=== PATIENT | male | born 1990 | race Caucasian/White ===

== ENCOUNTER 2018-05-24 12:51 | Emergency (ER) | payer OTHER, SELFPAY ==
[2018-05-24 13:03] VITALS: BP 115/68; PULSE 67; RESP 20; TEMP 36.8; O2SAT 97
[2018-05-24 13:34] LABS: Influenza A and B by PCR Rapid Negative (Negative)
--- NOTE | 2018-05-24 14:16 | ED.URI ---
HPI - URI/Sore Throat <Lashay Everett PA-C - Last Filed: 05/24/18 20:38> General Chief Complaint: Upper Respiratory Symptoms Stated Complaint: Sick x5 days Time Seen by Provider: 05/24/18 12:57 Source: patient Mode of arrival: ambulatory Limitations: no limitations History of Present Illness HPI Narrative: This 28-year-old comes in due to worsening upper respiratory symptoms. He states that he awoke on Sunday with nasal and sinus congestion and generalized fatigue which got worse. 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 He states that he had a lot of sweats on Sunday night and felt chilled (no temps taken at home). Thought he was a little better yesterday morning, but just doing his normal job yesterday he felt exhausted, and somewhat short of breath. He states he was ?panting? at times. He denies wheeze. He states that he continues to have a lot of nasal and sinus congestion along with productive cough and green sputum. He states occasionally he gets the short of breath or air hunger sensation, mostly describes as poor exercise tolerance. He denies wheeze. He denies recent travel or known exposures. He quit smoking a little over a month ago. Of note he is on HIV medication but this is for prophylaxis only, no history of infection. Related Data Home Medications Medication Instructions Recorded Confirmed emtricitabine-tenofovir (TDF) 1 tab PO DAILY 05/24/18 05/24/18 [Truvada] Allergies Allergy/AdvReac Type Severity Reaction Status Date / Time No Known Drug Allergies Allergy Verified 05/24/18 15:29 Review of Systems <Lashay Everett PA-C - Last Filed: 05/24/18 20:38> Review of Systems ROS Unobtainable: All systems reviewed & are unremarkable except as noted in HPI and below Exam <Lashay Everett PA-C - Last Filed: 05/24/18 20:38> Narrative Exam Narrative: GENERAL APPEARANCE: Patient sitting comfortably, in no distress. HEAD: No sinus TTP. EYES: PERRL, EOMI. EARS: Normal auditory canals, TMS intact with normal light reflexes. NOSE: Congestion, edematous mucosa ORAL CAVITY: Normal oropharynx. THROAT: Erythematous without exudate, PND noted NECK/THYROID: Neck supple, full range of motion, few small anterior cervical nodes, no posterior nodes LUNGS: Clear to auscultation bilaterally, occasional cough on exam HEART: RRR without murmur, nl S1, S2, no S3 or S4. Initial Vital Signs Initial Vital Signs: Vital Signs Temperature 98.2 F 05/24/18 13:03 Pulse Rate 67 05/24/18 13:03 Respiratory Rate 20 05/24/18 13:03 Blood Pressure 115/68 05/24/18 13:03 Pulse Oximetry 97 05/24/18 13:03 <Tonya Cárdenas DO - Last Filed: 05/25/18 08:55> Initial Vital Signs Initial Vital Signs: Vital Signs Temperature 98.2 F 05/24/18 13:03 Pulse Rate 67 05/24/18 13:03 Respiratory Rate 20 05/24/18 13:03 Blood Pressure 115/68 05/24/18 13:03 Pulse Oximetry 97 05/24/18 13:03 Course <Lashay Everett PA-C - Last Filed: 05/24/18 20:38> Additional Information: Patient works in a crowded location. Advised to remain off work until he is feeling significantly better and cough improved. Given work note and he will follow up with his flight surgeon if not feeling better in the next few days, agrees to return if acutely worsening symptoms Orders Ordered: Discontinued Medications Albuterol (Ventolin) 2.5 mg INH NOW ONE Stop: 05/24/18 14:26 Last Admin: 05/24/18 14:44 Dose: 2.5 mg Albuterol (Ventolin Hfa Prepack) 1 box MISC SEEINSTR ONE Stop: 05/24/18 15:14 Last Admin: 05/24/18 15:15 Dose: 1 box Ibuprofen (Advil) 800 mg PO NOW ONE Stop: 05/24/18 14:26 Last Admin: 05/24/18 14:39 Dose: 800 mg Vital Signs - 8 hr 05/24/18 13:03 05/24/18 14:33 05/24/18 14:47 Temperature 98.2 F Pulse Rate 67 55 L 44 L Respiratory Rate 20 21 16 Blood Pressure 115/68 Blood Pressure [Left Arm] 109/59 L Pulse Oximetry 97 98 100 05/24/18 15:15 05/24/18 15:48 Temperature Pulse Rate 46 L 73 Respiratory Rate 14 21 Blood Pressure Blood Pressure [Left Arm] 107/52 L Pulse Oximetry 100 95 <Tonya Cárdenas DO - Last Filed: 05/25/18 08:55> Orders Ordered: Discontinued Medications Albuterol (Ventolin) 2.5 mg INH NOW ONE Stop: 05/24/18 14:26 Last Admin: 05/24/18 14:44 Dose: 2.5 mg Albuterol (Ventolin Hfa Prepack) 1 box MISC SEEINSTR ONE Stop: 05/24/18 15:14 Last Admin: 05/24/18 15:15 Dose: 1 box Ibuprofen (Advil) 800 mg PO NOW ONE Stop: 05/24/18 14:26 Last Admin: 05/24/18 14:39 Dose: 800 mg Vital Signs - 8 hr 05/24/18 13:03 05/24/18 14:33 05/24/18 14:47 Temperature 98.2 F Pulse Rate 67 55 L 44 L Respiratory Rate 20 21 16 Blood Pressure 115/68 Blood Pressure [Left Arm] 109/59 L Pulse Oximetry 97 98 100 05/24/18 15:15 05/24/18 15:48 Temperature Pulse Rate 46 L 73 Respiratory Rate 14 21 Blood Pressure Blood Pressure [Left Arm] 107/52 L Pulse Oximetry 100 95 MDM - URI/Sore Throat <Lashay Everett PA-C - Last Filed: 05/24/18 20:38> Lab Data Lab Results 05/24/18 Range/Units 07:45 Influenza A & B (PCR) Negative (Negative) Imaging Data Chest x-ray: Radiologist's impression: View Report History [address] [address] XRay Report Signed Patient: Fady Rae MR#: [id number] : 1990 Acct:[id number] Age/Sex: 28 / M Date of Service: 05/24/18 Loc: ED Accession Number: [id number] Procedure: XR chest 2V Ordering Provider: Lashay Everett P.A-C PROCEDURE: XR CHEST 2V INDICATIONS: cough, fatigue, air hunger TECHNIQUE: 2 views of the chest were acquired. COMPARISON: None. FINDINGS: Surgical changes and devices: None. Lungs and pleura: No pleural effusions or pneumothorax. Lungs are clear. Mediastinum: Mediastinal contours are normal. Heart size is normal. Bones and chest wall: No suspicious bony abnormalities. Soft tissues appear unremarkable. IMPRESSION: Negative chest. No acute cardiopulmonary process is evident. Dictated by: Olaf Pickens M.D. on 05/24/2018 at 13:45 Approved by: Olaf Pickens M.D. on 05/24/2018 at 13:45 <Tonya Cárdenas DO - Last Filed: 05/25/18 08:55> Lab Data Lab Results 05/24/18 Range/Units 07:45 Influenza A & B (PCR) Negative (Negative) Discharge Plan Departure Patient Disposition: Home Clinical Impression: Sinusitis, Mild reactive airways disease Discharge Date/Time: 05/24/18 16:29 Interventions: ED Discharge Assessment Last Done: 05/24/18 16:29 Instructions: DI for Sinusitis, DI for Reactive Airway Disease-Adult Activity Restrictions/Additional Instructions: I think that you have a sinus infection/head cold that is causing drainage into your chest and making you cough and your chest tight at times. These infections are due to virus the vast majority of the time and usually get better on their own. Since the breathing treatment we gave you helped this, we have given you and inhaler to use as you need (you have inflammation in your airways due to the infection, and this could be exacerbated due to your smoking history). I do not expect you to need the inhaler on any regular basis. Take 2 puffs as needed for tight chest or cough. Continue ibuprofen as needed to help with aches. I suggest getting some Zyrtec (cetirizine) 10 mg along with pseudoephedrine from the pharmacist. These will help with drainage and nasal and sinus pressure and congestion. You can also add Mucinex (guaifenesin) to help thin the mucus in your chest. All of these are available [id number]. Please remain off of work until your cough is better so that you do not infect your coworkers. Please return as we talked about if you have any acutely worsening symptoms Prescriptions: No Action emtricitabine-tenofovir (TDF) [Truvada] 200-300 mg tablet 1 tab PO DAILY RF: 0 Referrals: [facility] [Provider Group] Stand Alone Forms: Work Release Note <Tonya Cárdenas DO - Last Filed: 05/25/18 08:55> Cosign ED Attending Cosignature Attestation: I was immediately available in the department for consultation. Documentation has been reviewed. I agree with assessment and plan.
--- NOTE | 2018-05-24 14:26 | DI.RAD.S_ITS ---
PROCEDURE: XR CHEST 2V INDICATIONS: cough, fatigue, air hunger TECHNIQUE: 2 views of the chest were acquired. COMPARISON: None. FINDINGS: Surgical changes and devices: None. Lungs and pleura: No pleural effusions or pneumothorax. Lungs are clear. Mediastinum: Mediastinal contours are normal. Heart size is normal. Bones and chest wall: No suspicious bony abnormalities. Soft tissues appear unremarkable. IMPRESSION: Negative chest. No acute cardiopulmonary process is evident. Dictated by: Oalf Pickens M.D. on 05/24/2018 at 13:45 Approved by: Olaf Pickens M.D. on 05/24/2018 at 13:45
[2018-05-24 14:33] VITALS: BP 109/59; PULSE 55; RESP 21; O2SAT 98
[2018-05-24] MEDS: IBUPROFEN 400 MG TABLET 800 MG PO (14:39)
[2018-05-24] MEDS: ALBUTEROL 2.5 MG/3 ML NEB (ADULT) INH (14:44)
[2018-05-24 14:47] VITALS: PULSE 44; RESP 16; O2SAT 100
[2018-05-24 15:15] VITALS: PULSE 46; RESP 14; O2SAT 100
[2018-05-24] MEDS: ALBUTEROL HFA PREPACK 1 BOX MISC (15:15)
[2018-05-24 15:48] VITALS: BP 107/52; PULSE 73; RESP 21; O2SAT 95
== END 2018-05-24 16:29 | disposition home or self-care (01) ==
PROVIDERS: Emergency Medicine; Emergency Provider Internal Medicine
DX: J01.90 Acute sinusitis, unspecified (principal); J45.909 Unspecified asthma, uncomplicated
CPT/HCPCS: 71046; 87400; 94640; 99282; 99284; J7613

== ENCOUNTER 2019-11-18 20:21 | Emergency (ER) | payer OTHER, SELFPAY ==
[2019-11-18 20:33] VITALS: BP 125/75; PULSE 55; RESP 18; TEMP 36.8; O2SAT 97
--- NOTE | 2019-11-18 21:01 | ED.WOUNDLAC ---
HPI - Wound/Laceration General Chief Complaint: Wound/Laceration Stated Complaint: SARA LINE ON LACERATION OF PENIS Time Seen by Provider: 11/18/19 21:01 Source: patient Mode of arrival: Ambulatory Limitations: no limitations History of Present Illness HPI narrative: The patient was trimming here from his genital area prior to arrival. He lacerated the base of the ventral penis with the sara. He has a small v-shaped laceration, there is no active bleeding. The laceration is shallow. The urethra is not impacted. Related Data Home Medications Medication Instructions Recorded Confirmed emtricitabine-tenofovir (TDF) 1 tab PO DAILY 05/24/18 05/24/18 [Truvada] Allergies Allergy/AdvReac Type Severity Reaction Status Date / Time No Known Drug Allergies Allergy Verified 05/24/18 15:29 Review of Systems Constitutional Constitutional: Denies chills, Denies fever(s), Denies lethargy and Denies weakness Genitourinary Genitourinary: Reports as per HPI Genitourinary: Reports as per HPI Integumentary/Breasts Skin/Breast: Denies erythema, Denies rash and Reports wounds (On the ventral penis) Neurologic Neurologic: Denies weakness Patient History Surgical History History of appendectomy (Resolved) History of tonsillectomy (Resolved) Family History Other Family history non-contributory Social History Smoking Status: Former smoker Smoking Status: Former smoker alcohol intake frequency: 0-2 drinks per day Substance Use Type: does not use Exam Initial Vital Signs Initial Vital Signs: Vital Signs Temperature 98.2 F 11/18/19 20:33 Pulse Rate 55 L 11/18/19 20:33 Respiratory Rate 18 11/18/19 20:33 Blood Pressure 125/75 11/18/19 20:33 Pulse Oximetry 97 11/18/19 20:33 Const General: cooperative and well developed Nutritional Appearance: well nourished Other: Shallow v-shaped laceration on the ventral penis. The length is 1 cm. There is no foreign body or contamination. Procedures Laceration Repair Laceration 1: Site: penis (Proximal, ventral) Size (cm): 1 Description: flap Pre-repair: wound explored and irrigated extensively Skin layer closed with: dermabond Course Vital Signs Vital signs: Vital Signs - 8 hr 11/18/19 20:33 Temperature 98.2 F Pulse Rate 55 L Respiratory Rate 18 Blood Pressure 125/75 Pulse Oximetry 97 Discharge Plan Departure Patient Disposition: Home Clinical Impression: Laceration of penis Qualifiers: Encounter type: initial encounter Qualified Code(s): S31.21XA - Laceration without foreign body of penis, initial encounter Instructions: DI for Laceration Repair With Dermabond Activity Restrictions/Additional Instructions: You may wash the site starting tomorrow. Avoid soaking, or excessive moisture. The glue should peel off in 5-7 days. Return to the ER as needed. Prescriptions: No Action emtricitabine-tenofovir (TDF) [Truvada] 200-300 mg tablet 1 tab PO DAILY RF: 0
--- NOTE | 2019-11-18 21:08 | PC.NURSE ---
patient came into the ED with a complaint of laceration of base penile shaft. He was manscaping and clipped his penis skin. The wound was clensed with betadyne and nacl and was glued with dermabond.
== END 2019-11-18 21:15 | disposition home or self-care (01) ==
PROVIDERS: Emergency Provider Emergency Medicine
DX: S31.21XA Laceration without foreign body of penis, initial encounter (principal)
CPT/HCPCS: 99281

== ENCOUNTER 2020-02-14 23:00 | Emergency (ER) | payer OTHER, SELFPAY ==
[2020-02-14 23:06] VITALS: BP 131/77; PULSE 68; RESP 22; TEMP 37.2; O2SAT 98; BMI 28.7
--- NOTE | 2020-02-14 23:07 | DI.RAD.S_ITS ---
PROCEDURE: XR CHEST 1V INDICATIONS: SOB, trauma TECHNIQUE: One view of the chest was acquired. COMPARISON: [facility], CR, XR CHEST 2V, 05/24/2018, 14:32. FINDINGS: Surgical changes and devices: None. Lungs and pleura: Mildly decreased lung volumes. Lungs are clear. No pleural effusions or pneumothorax. Mediastinum: Mediastinal contours appear normal. Heart size is normal. Bones and chest wall: No suspicious bony lesions. Overlying soft tissues appear unremarkable. IMPRESSION: Mildly decreased lung volumes. Dictated by: Dean Brady M.D. on 02/15/2020 at 7:23 Approved by: Dean Brady M.D. on 02/15/2020 at 7:25
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
--- NOTE | 2020-02-14 23:15 | DI.CT.S_ITS ---
PROCEDURE: CT CERVICAL SPINE WO CON INDICATIONS: trauma TECHNIQUE: Noncontrast 3 mm thick sections acquired from the skull base to the T4 level. Sagittal and coronal reformats were then constructed. For radiation dose reduction, the following was used: automated exposure control, adjustment of mA and/or kV according to patient size. COMPARISON: None. FINDINGS: Image quality: Excellent. Bones: No fractures or dislocations. Visualized superior ribs are intact. Soft tissues: Prevertebral soft tissues are normal in thickness. No paravertebral hematomas. No apical pneumothoraces. IMPRESSION: No acute cervical fracture or traumatic malalignment. Dictated by: Dean Brady M.D. on 02/15/2020 at 7:29 Approved by: Dean Brady M.D. on 02/15/2020 at 7:32
[2020-02-14] MEDS: ONDANSETRON 4 MG/2 ML INJ IV (23:24)
[2020-02-14] MEDS: HYDROMORPHONE 0.5 MG INJ IV (23:24)
[2020-02-14 23:27] LABS: Add Manual Diff / Slide Review NO; Basophils Absolute Auto 0 /uL (0-100); Basophils Percent Auto 0.6 % (0-2); Eosinophils Absolute Auto 100 /uL (0-450); Eosinophils Percent Auto 0.8 % (2-4); Hematocrit 44.5 % (41-53); Hemoglobin 15.4 g/dL (13.5-17.5); Lymphocytes Absolute Auto 2200 /uL (1100-4500); Lymphocytes Percent Auto 32.2 % (25-40); Mean Corpuscular HGB Conc 34.6 % (30-36); Mean Corpuscular Hemoglobin 31.7 PG (26-34); Mean Corpuscular Volume 91.5 fL (80-100); Monocytes Absolute Auto 500 /uL (0-900); Monocytes Percent Auto 7.7 % (3-14); Neutrophils Absolute Auto 4000 /uL (1500-7000); Neutrophils Percent Auto 58.7 % (50-75); Platelet Count 209 X10^3/uL (150-400); Red Blood Cell Count 4.87 X10^6/uL (4.5-5.9); Red Cell Distribution Width 13.4 % (11.6-14.8); White Blood Cell Count 6.8 X10^3/uL (4.5-11.0)
[2020-02-14 23:36] LABS: Alanine Aminotransferase 36 IU/L (<50); Albumin 4.4 g/dL (3.5-5.0); Albumin Globulin Ratio 1.3 (1.0-2.8); Alkaline Phosphatase 74 U/L (38-126); Aspartate Aminotransferase 48 IU/L (17-59); Bilirubin Total 0.4 mg/dL (0.2-1.3); Blood Urea Nitrogen 24 mg/dL (9-20); Calcium 9.4 mg/dL (8.4-10.2); Carbon Dioxide 28 mmol/L (22-32); Chloride 105 mmol/L (98-107); Creatine Kinase 855 U/L (55-170); Estimated Glomerular Filt Rate > 60.0 mL/min (>60); Globulin 3.4 g/dL (1.7-4.1); Glucose 110 mg/dL (70-100); Potassium 4.1 mmol/L (3.4-5.1); Sodium 140 mmol/L (137-145); Total Protein 7.8 g/dL (6.3-8.2)
[2020-02-14 23:48] LABS: Troponin I < 0.012 ng/mL (0.01-0.034)
[2020-02-14 23:49] VITALS: BP 134/83; PULSE 57; O2SAT 97
[2020-02-14 23:51] LABS: CKMB % Relative Index 0.3 % (1.5-5.0); Creatine Kinase MB 2.31 ng/mL (<2.37); HEMOLYSIS 39 (0-50)
[2020-02-15] VITALS: BP 137/83; PULSE 60; O2SAT 94
[2020-02-15] MEDS: KETOROLAC 60 MG/2 ML VIAL 15 MG IV (00:29)
[2020-02-15] MEDS: HYDROCODONE/ACET 5/325 PREPACK 1 BOTTLE MISC (00:29)
[2020-02-15] MEDS: ONDANSETRON 4 MG ODT PREPACK 1 BOTTLE MISC (00:29)
[2020-02-15 00:30] VITALS: BP 125/71; PULSE 62; O2SAT 96
[2020-02-15] MEDS: HYDROMORPHONE 0.5 MG INJ IV (00:37)
== END 2020-02-15 00:43 | disposition home or self-care (01) ==
PROVIDERS: Emergency Provider Emergency Medicine
DX: R09.1 Pleurisy (principal); S40.011A Contusion of right shoulder, initial encounter; R06.02 Shortness of breath; R07.89 Other chest pain; S09.90XA Unspecified injury of head, initial encounter; R07.81 Pleurodynia; V89.2XXA Person injured in unspecified motor-vehicle accident, traffic, initial encounter
CPT/HCPCS: 36415; 70450; 71045; 71260; 72125; 74177; 80053; 82550; 82553; 84484; 85025; 96374; 96375; 96376; 99284; 99285; J1170; J1885; J2405; Q9967

== ENCOUNTER 2022-02-16 23:45 | Emergency (ER) | payer OTHER, SELFPAY ==
[2022-02-17 00:08] VITALS: BP 121/82; PULSE 69; RESP 20; TEMP 36.4; O2SAT 97; BMI 31.5
== END 2022-02-17 00:24 | disposition left against medical advice (07) ==
PROVIDERS: Emergency Provider Emergency Medicine
CPT/HCPCS: 99281